=== PATIENT | female | born 1990 | race Caucasian/White ===

== ENCOUNTER → 2024-04-17 08:45 | Outpatient (BNV) | payer BC, SELFPAY | PROVIDERS: Visit Provider Psychiatry & Neurology Psychiatry | DX: F33.2 Major depressive disorder, recurrent severe without psychotic features (principal); F43.12 Post-traumatic stress disorder, chronic; F41.1 Generalized anxiety disorder | CPT/HCPCS: 90792 ==

== ENCOUNTER 2024-04-21 08:45 | Outpatient (RCR) | payer BC, SELFPAY ==
[2024-04-10 11:38] VITALS: BMI 26.8
[2024-04-10 11:39] VITALS: BP 90/50; PULSE 68; TEMP 37.2
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
--- NOTE | 2024-04-13 15:11 | HO.PHP ---
Client's case has been opened and reviewed in team.
--- NOTE | 2024-04-21 13:05 | HO.PHPPROGNO ---
Subjective Subjective Date of Service: 04/21/24 Reason For Visit: depression,anxiety Interim History: The patient was admitted after an inpatient admission. She had been depressed anxious history PTSD and depression. Has continued on escitalopram 20 mg propranolol for migraine prophylaxis she has been taking mirtazapine 3.75 mg p.r.n. for insomnia. The patient is future oriented with no self-harming thoughts. She does have outpatient providers and does not need any prescriptions at this time. Feels safe for discharge. Has number for suicide hotline if needed Medication Compliance: Yes Attending Groups: Yes Review of Systems Acute medical concerns: No Mental Status Exam Mental Status Exam Narrative: Alert, oriented, in no acute distress. Calm, cooperative, engaged. Spech clear. No psychomotor agitation or neurovegetative retardation. Eye contact maintained. Mood some anxiety, affect full. Thought process linear, coherent. Thought content related to feeling much improved felt program quite helpful . no SI or HI. No paranoia or delusional content elicited. No evidence of psychosis. Insight and judgment adequate. Diagnostics Vital Signs (24Hr): BMI result Body Mass Index 26.8 Assessment & Plan Assessment & Plan (1) Chronic post-traumatic stress disorder (PTSD): Status: Acute Code(s): F43.12 - Post-traumatic stress disorder, chronic (2) MAHSA (generalized anxiety disorder): Status: Acute Code(s): F41.1 - Generalized anxiety disorder Plan Pt feels stable improved mood and has strategies to manage stressors. Will return to outpt providers. States she feels much more stable. Patient educated on: medication risk/benefits Informed Consent: understands Reason for contiued partial hosp. stay Substantial Risk for: stable for discharge Certification I certify that partial hospital treatment is medically necessary due to the symptoms and problems resulting from the patient's mental illness and the failure to treat the patient at the partial hospital level of care would likely result in the patient requiring inpatient psychiatric care which could not be prevented at a less intensive level of care. Total time managing care of this patient today ____ minutes. Discharge Plan Discharge Attending provider: Susan Rowland Medications: New mirtazapine 7.5 mg tablet 3.75 - 7.5 mg PO BEDTIME PRN (Reason: sleep) Qty: 14 0RF Continued sumatriptan succinate 50 mg tablet 50 mg PO QD-BID PRN (Reason: migraine) lorazepam 0.5 mg tablet 0.5 mg PO DAILY PRN (Reason: Anxiety) albuterol sulfate 90 mcg/actuation Hfa Aerosol Inhaler 2 puff INHALATION Q6H PRN (Reason: sob) topiramate 100 mg tablet 100 mg PO BID escitalopram oxalate 10 mg tablet 20 mg PO DAILY Patient Comments: Patient stated her prescriber who she saw last week, Juan David Galvan, increased lexapro from 10 mg to 20 mg daily. Discontinued trazodone 50 mg tablet 25 mg PO BEDTIME PRN (Reason: insomnia) Patient Comments: Patient stated she has not used this since she was in the hospital. Reports she feels too drowsy in the morning when she takes it at HS. No Action zxyijllipg-vhhazwwzrpkaq-xzee 50-325-40 mg tablet 1 tab PO Q6H PRN (Reason: headache) propranolol 60 mg Capsule,Extended Release 24 Hr 60 mg PO DAILY Stand Alone Forms: Patient Portal Discharge page Patient Education: Depression (DC), Anxiety (GEN) Print Language: Uruguayan
== END 2024-04-21 23:59 | disposition home or self-care (01) ==
LOC: HO.PHPA 08:45
PROVIDERS: Visit Provider Psychiatry & Neurology Psychiatry
DX: F33.2 Major depressive disorder, recurrent severe without psychotic features (principal); F43.12 Post-traumatic stress disorder, chronic; F41.1 Generalized anxiety disorder; Z79.899 Other long term (current) drug therapy
CPT/HCPCS: 90791; 90853

== ENCOUNTER → 2024-04-21 08:45 | Outpatient (BNV) | payer BC, SELFPAY | PROVIDERS: Visit Provider Psychiatry & Neurology Psychiatry | DX: F43.12 Post-traumatic stress disorder, chronic (principal); F41.1 Generalized anxiety disorder | CPT/HCPCS: 99213 ==